=== PATIENT | male | born 1970 | race Two or more races ===

== ENCOUNTER 2019-10-05 14:45 | Emergency (ER) | payer BC ==
[~2019-10-05] VITALS: Ht 162.6 cm; Wt 61.0 kg
--- NOTE | 2019-10-05 15:35 | PHYS DOC ---
Past Medical History Past Medical History: GERD, Other Additional Past Medical Histor: "prediabetes" Past Surgical History: Other Additional Past Surgical Histo: inguinal hernia repair Smoking Status: Never Smoker Alcohol Use: Heavy Additional Information: drinks 6 pack beers daily General Adult EDM: Chief Complaint: DIZZY/LIGHT HEADED HPI: HPI: 48-year-old male past medical history of GERD and daily alcohol abuse (six pack of beer daily), presents the ED with complaints of gradual onset dizziness described as the room spinning that started around 11:30 AM this morning, worse when patient stands. 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 Has some reported nausea. Coworker brought patient to the ED. Patient states he is only had ice tea to drink today, no water. Drink alcohol last night. Denies any recent head injury or upper respiratory infection. States dizziness is "almost gone, I feel fine now," upon ED presentation. ROS: Denies associated fever, chills, headache, neck stiffness, focal neurologic deficit including sensory or motor deficits or ataxia, throat, cough, nasal congestion, earache, decreased hearing, vomiting, diarrhea, abdominal or back pain, chest pain or pressure, dyspnea or cough, sore throat, leg swelling or rash. Allergies: Allergies: Allergies Coded Allergies Type Severity Reaction Last Updated Verified peanut Allergy Mild itchy eyes, runny nose 10/05/19 Yes pollen extracts Allergy Mild runny nose,sneezing 10/05/19 Yes Physical Exam: PE: Constitutional: Well developed, well nourished, no acute distress, non-toxic appearance. [] HENT: Normocephalic, atraumatic, bilateral external ears normal, oropharynx dry, Eyes: PERRLA, EOMI, conjunctiva normal, no discharge. [] Neck: Normal range of motion, no tenderness, supple, no stridor. [] Cardiovascular:Heart rate regular rhythm, no murmur [] Lungs & Thorax: Bilateral breath sounds clear to auscultation [] Abdomen: Bowel sounds normal, soft, no tenderness, no masses, no pulsatile masses. [] Skin: Warm, dry, no erythema, no rash. [] Back: No tenderness, no CVA tenderness. [] Extremities: No tenderness, no cyanosis, no clubbing, ROM intact, no edema. [] Neurologic: Alert and oriented X 3, normal motor function, normal sensory function, no focal deficits noted, no ataxia, normal [id number], rapid alternating movements, hints exam negative for any central etiology Psychologic: Affect normal, judgement normal, mood normal. [] Current Patient Data: Vital Signs: Vital Signs Date Time Temp Pulse Resp B/P (MAP) Pulse Ox O2 Delivery O2 Flow Rate FiO2 10/05/19 15:16 97.3 79 16 164/90 (114) 100 Room Air 97.3 EKG: EKG: Sinus rhythm at 74 bpm, no axis deviation, normal intervals, no T wave inversions, no ST elevations or ST depressions Radiology/Procedures: Radiology/Procedures: IMAGING REPORT Signed PATIENT: DANII RODRIGUEZ ACCOUNT: [id number] : 1970 LOCATION: ER AGE: 48 SEX: M EXAM STATUS: REG ER ORD. PHYSICIAN: NANCY DIALLO DO REASON: dizzy PROCEDURE: CHEST AP ONLY CHEST AP ONLY History: Dizziness Comparison: None. Findings: Single view of the chest is submitted. There is no infiltrate, pneumothorax, or effusion. The pericardial cardiac silhouette is within normal limits in size. Impression: 1. There is no radiographic evidence of acute cardiopulmonary disease. Electronically signed by: Clinton Fisher MD (10/05/2019 3:51 PM) [facility] DICTATED and SIGNED BY: CLINTON FISHER MD DATE: 10/05/19 1551 Course & Med Decision Making: Course & Med Decision Making Pertinent Labs and Imaging studies reviewed. (See chart for details) Concern for gradual onset dizziness that has since resolved in the absence of any head trauma, hearing loss or focal neurologic deficits. Basic labs including troponin, chest x-ray and EKG are all fairly unremarkable. Patient with steady gait. Patient is dehydrated on exam and was given IV fluids. DC home with strict ED return precautions for focal deficits, sudden onset dizz iness, difficulties walking or head injury. Encouraged urgent outpatient follow-up with PMD and neurology. Life-threatening processes were considered but are low suspicion at this time, given history and physical exam. Pt was educated on all prescription medications and adverse effects. All patient's questions were answered and pt was stable at time of discharge. Differential includes cerebrovascular accident, cerebellar stroke, acute coronary syndrome, carbon monoxide poisoning or other toxidrome, arrhythmia, [place] syndrome, thyroid disease, central and peripheral vertigo, intracranial hemorrhage, vertebrobasilar insufficiency, heat stroke, electrolyte disorder, rheumatologic or autoimmune disorder I spoken with the patient and her caregivers. I explained the patient's condition, diagnoses and treatment plan based on the information available to me at this time. I have answered the patient and her caregiver's questions and addressed any concerns. The patient and her caregivers have a good und erstanding of patient's diagnosis, condition and treatment plan as can be expected at this point. Vital signs have been stable. Patient's condition is stable and appropriate for discharge from the emergency department. Patient will pursue further outpatient evaluation with primary care physician or other designated or consulting physician as outlined in the discharge instructions. The patient and/or caregivers are agreeable to this plan of care and follow-up instructions have been explained in detail. The patient and/or caregivers have received these instructions in written form and have expressed an understanding of the discharge instructions. The patient and/or caregivers are aware that any significant change of condition or worsening of symptoms sh ould prompt immediate return to this or the closest emergency department or call to 911. [employer] Disclaimer: [employer] Disclaimer: This electronic medical record was generated, in whole or in part, using a voice recognition dictation system. Departure Departure Impression: Primary Impression: Dizziness Additional Impression: Dehydration Disposition: 01 HOME, SELF-CARE Condition: STABLE Referrals: NO PCP (PCP) Patient Instructions: Dehydration, Adult, Dizziness Additional Instructions: Gui Cruz MD -in 1-2 weeks if symptoms persist, return to ed if symptoms worsen or you develop any neurologic deficits Neurology Address: [address] [place] [id number] Justicifation of Admission Dx: Justifications for Admission: Justification of Admission Dx: N/A NANCY DIALLO DO Oct 05, 2019 15:35
--- NOTE | 2019-10-05 15:39 | EKG ---
[facility] [address] [place] [address] Test Date: 2019-10-05 Test Time: 15:32:59 Pat Name: DANII RODRIGUEZ Department: Room: Gender: M Kennel Manager: : 1970 Requested By: NANCY DIALLO Order Number: [id number] Reading MD: Measurements Intervals [place] Rate: 74 P: 29 SC: 172 QRS: -46 QRSD: 98 T: 36 QT: 358 QTc: 402 Interpretive Statements SINUS RHYTHM ABNORMAL LEFT AXIS DEVIATION S1,S2,S3 PATTERN LEFT ANTERIOR FASCICULAR BLOCK INCOMPLETE RIGHT BUNDLE BRANCH BLOCK ABNORMAL ECG RI6.02 No previous ECG available for comparison
[2019-10-05] MEDS ORDERED: IV NORMAL SALINE 1000ML BAG 1,000 ML IV ONE (15:45)
[2019-10-05 15:47] LABS: BASO % 0 % (0-3); EOS % 0 % (0-3); HEMATOCRIT 39.7 % (39.0-53.0); HEMOGLOBIN 13.8 g/dL (13.0-17.5); LYMPH # 0.8 x10^3/uL (1.0-4.8); LYMPH % 13 % (24-48); MEAN CORPUSCULAR HEMOGLOBIN 31 pg (25-35); MEAN CORPUSCULAR HGB CONC 35 g/dL (31-37); MEAN CORPUSCULAR VOLUME 90 fL (79-100); MONO # 0.4 x10^3/uL (0.0-1.1); MONO % 7 % (0-9); NEUT # 4.7 x10^3/uL (1.8-7.7); NEUT % 80 % (31-73); PLATELET COUNT 252 x10^3/uL (140-400); RED BLOOD COUNT 4.43 x10^6/uL (4.30-5.70); RED CELL DISTRIBUTION WIDTH 13.9 % (11.5-14.5); WHITE BLOOD COUNT 5.9 x10^3/uL (4.0-11.0)
--- NOTE | 2019-10-05 15:54 | RAD ---
CHEST AP ONLY History: Dizziness Comparison: None. Findings: Single view of the chest is submitted. There is no infiltrate, pneumothorax, or effusion. The pericardial cardiac silhouette is within normal limits in size. Impression: 1. There is no radiographic evidence of acute cardiopulmonary disease. Electronically signed by: Franc Gilmore MD (10/05/2019 3:51 PM) [facility]
[2019-10-05 16:04] LABS: CALCIUM 9.1 mg/dL (8.5-10.1); CREATININE 0.7 mg/dL (0.7-1.3); GFR 119.4; POTASSIUM 3.8 mmol/L (3.5-5.1)
[2019-10-05 16:07] LABS: ALBUMIN 3.4 g/dL (3.4-5.0); ALBUMIN/GLOBULIN RATIO 0.6 (1.0-1.7); TOTAL BILIRUBIN 0.3 mg/dL (0.2-1.0); TOTAL PROTEIN 8.8 g/dL (6.4-8.2)
[2019-10-05 17:06] VITALS: BP 172/94
== END 2019-10-05 17:09 | disposition home or self-care (01) ==
LOC: ER 14:45 → EDBD 14:45 → ER 17:09
DX: R42 Dizziness and giddiness (principal); E86.0 Dehydration; K21.9 Gastro-esophageal reflux disease without esophagitis; F10.20 Alcohol dependence, uncomplicated; Y90.0 Blood alcohol level of less than 20 mg/100 ml; Z91.010 Allergy to peanuts; Z88.8 Allergy status to other drugs, medicaments and biological substances
CPT/HCPCS: 36415; 71045; 80053; 84484; 85025; 93005; 96360; 99285; G0480; J7030

== ENCOUNTER → 2019-12-17 | Outpatient (CLI) | payer BC ==
--- NOTE | 2019-12-17 08:37 | RAD ---
EXAM: Abdomen sonogram. HISTORY: Pain. TECHNIQUE: Sonographic imaging of the abdomen was performed. COMPARISON: None. FINDINGS: The liver is normal in size. There is hepatic steatosis. No focal hepatic lesion is seen. The common bile duct is normal in caliber. The gallbladder wall is mildly thickened. The kidneys and pancreas are unremarkable. The spleen is normal in size. The aorta is normal in caliber. The inferior vena cava is patent. IMPRESSION: 1. Suspected hepatic steatosis. 2. Mild gallbladder wall thickening. This is nonspecific and may be due to intrinsic liver disease or cholecystitis. Correlate with symptomatology. Electronically signed by: Dori Altamirano MD (12/17/2019 8:34 AM) [id number]
--- NOTE | 2019-12-17 08:54 | RAD ---
EXAM: Thoracic spine, 3 views. HISTORY: Pain. COMPARISON: None. FINDINGS: 3 views of the thoracic spine are obtained. There is mild thoracolumbar scoliosis. There is no significant listhesis. The vertebral bodies are normal in height. The disc spaces are preserved. IMPRESSION: No acute osseous finding. Electronically signed by: Dori Altamirano MD (12/17/2019 8:51 AM) [id number]
== END ==
LOC: US 07:15
PROVIDERS: ATTEND Family Medicine
DX: M41.85 Other forms of scoliosis, thoracolumbar region (principal); K76.0 Fatty (change of) liver, not elsewhere classified
CPT/HCPCS: 72072; 76700

== ENCOUNTER → 2020-03-14 | Outpatient (CLI) | payer BC ==
[~2020-03-14] MED LIST: CONTRAST GIVEN. MC PRN; IOHEXOL 240 MG/ML 50ML VIAL. PO ONE; IOHEXOL 300 MG/ML 100ML VIAL. IV ONE
--- NOTE | 2020-03-14 18:00 | RAD ---
EXAM: CT Abdomen and Pelvis with IV contrast INDICATION: Reason: epigastric abd pain fatty liver / Spl. Instructions: omni 300 75ml omni 240 50m l / History: TECHNIQUE: Multi-detector row CT images were acquired from the lung bases through the abdomen and pel vis with the use of IV contrast. Sagittal and coronal images were acquired from the transaxial data. All CT scans performed at this facility utilize dose optimization techniques as appropriate to the ex am, including the following: Automated exposure control and adjustment of the mA and/or KV according to patient size (this includes techniques or standardized protocols for targeted exams where dose is indication/reason for exam). IV CONTRAST: Administered ORAL CONTRAST: Administered COMPARISON: Complete abdominal ultrasound 12/17/2019 FINDINGS: LOWER CHEST: Unremarkable LIVER: Low-density lesion in the right hepatic lobe compatible with a cyst is noted. The liver is ot herwise unremarkable on this phase of enhancement. BILIARY SYSTEM: Gallbladder is unremarkable. Bile ducts are not dilated. PANCREAS: Unremarkable SPLEEN: Unremarkable ADRENALS: Unremarkable KIDNEYS & URETERS: Unremarkable BLADDER: Unremarkable REPRODUCTIVE ORGANS: Unremarkable GASTROINTESTINAL: The stomach, small bowel, and colon are unremarkable. The appendix is normal. MESENTERY/PERITONEUM/RETROPERITONEUM: Unremarkable VASCULAR: Unremarkable LYMPH NODES: No adenopathy OSSEOUS & SOFT TISSUES: There is soft tissue the right inguinal canal is suggestive of previous ingu inal hernia repair. IMPRESSION: No specific cause for epigastric abdominal pain identified on contrast enhanced CT. Electronically signed by: Jac Ag MD (03/14/2020 5:57 PM) [id number]
== END ==
LOC: CT 09:07
PROVIDERS: ATTEND Internal Medicine Gastroenterology
DX: K76.0 Fatty (change of) liver, not elsewhere classified (principal); R10.84 Generalized abdominal pain
CPT/HCPCS: 74177; Q9966; Q9967